=== PATIENT | female | born 1955 | race Caucasian/White ===

== ENCOUNTER 2021-02-02 06:04 | Day surgery (SDC) | payer OTHER ==
[2021-02-02] MEDS ORDERED: Cyclopentolate 1% Opth Drop 2 ML BOT FS SCH (06:15)
[2021-02-02] MEDS ORDERED: Phenylephrine 2.5% Ophth Soln 5 ML BOT FS SCH (06:15)
[2021-02-02] MEDS ORDERED: Phenylephrine 2.5% Ophth Soln 5 ML BOT ONE (06:16)
[2021-02-02] MEDS ORDERED: Cyclopentolate 1% Opth Drop 2 ML BOT ONE (06:16)
[2021-02-02] MEDS ORDERED: Fentanyl 100 MCG/2 ML VIAL ONE (06:23)
[2021-02-02] MEDS ORDERED: Midazolam HCl 2 mg/2 ml Vial ONE (06:23)
[2021-02-02] MEDS ORDERED: PROPOFOL 20 ML ONE (06:24)
[2021-02-02] MEDS ORDERED: EPINEPHrine 0.3 MG in Ophthalmic Irrigation Solution 500 ML IRR SCH (07:30)
[2021-02-02] MEDS ORDERED: Bupivacaine PF 0.75% SDV 10 ML ONE (07:38)
[2021-02-02] MEDS ORDERED: Triamcinolone 40 MG/ML VIAL ONE (07:38)
[2021-02-02] MEDS ORDERED: Lidocaine 4% PF 5 ML AMP ONE (07:38)
[2021-02-02] MEDS ORDERED: Maxitrol 0.1% Opth Oint 3.5 GM TUBE ONE (07:38)
[2021-02-02] MEDS ORDERED: Lidocaine 1% PF 5 ML VIAL ONE (07:38)
[2021-02-02] MEDS ORDERED: PROPOFOL 200 MG/20 ML VIAL ONE (07:38)
[2021-02-02] MEDS ORDERED: CEFAZOLIN 1 GM VIAL ONE (07:38)
== END 2021-02-02 09:06 | disposition home or self-care (01) ==
LOC: SDC 06:04
PROVIDERS: ATTEND Ophthalmology Retina Specialist
PROC: 08T53ZZ Resection of Left Vitreous, Percutaneous Approach (ICD-10-PCS; principal; 2021-02-02)
DX: H33.022 Retinal detachment with multiple breaks, left eye (principal)
CPT/HCPCS: 67025; J0171; J0690; J2250; J2704; J3010; J3301; J3490